=== PATIENT | male | born 1965 | race Caucasian/White ===

== ENCOUNTER 2017-07-30 11:04 | Inpatient (IN) | payer OTHER ==
[2017-07-30] MEDS ORDERED: SOD CHLORIDE 0.9% 500 ML IV (19:44)
[2017-07-30] MEDS ORDERED: hydrALAzine 20 MG INJ IV (20:00)
[2017-07-30 20:16] LABS: ADD MAN DIFF? NO
[2017-07-30 20:19] LABS: WHITE BLOOD COUNT 5.8 10^3/ul (4.8-10.8)
[2017-07-30 20:19] LABS: BASOPHIL # 0.1 10^3/ul (0.0-0.1); EOSINOPHILS # 0.2 10^3/ul (0.0-0.5); EOSINOPHILS % 3.6 % (0.0-7.0); HEMATOCRIT 28.6 % (42.0-52.0); HEMOGLOBIN 9.4 g/dl (14.0-18.0); LYMPHOCYTES # 0.9 10^3/ul (0.8-2.9); LYMPHOCYTES % 15.9 % (15.0-51.0); MEAN CORPUSCULAR HGB CONC 32.9 g/dl (32.0-37.0); MEAN CORPUSCULAR VOLUME 91.4 fl (82.0-101.0); MEAN PLATELET VOLUME 11.3 fl (7.4-10.4); MONOCYTE # 0.5 10^3/ul (0.3-0.9); MONOCYTES % 7.7 % (0.0-11.0); NEUTROPHIL # 4.2 10^3/ul (1.6-7.5); NEUTROPHILS % 71.5 % (39.0-77.0); PLATELET COUNT 255 10^3/UL (140-415); RED BLOOD COUNT 3.13 10^6/ul (4.70-6.10); RED CELL DISTRIBUTION WIDTH 15.8 % (11.5-14.5)
[2017-07-30] MEDS: FUROSEMIDE 40 MG INJ IV (20:19)
[2017-07-30 20:42] LABS: INR 1.01; PROTIME 13.4 Sec (11.9-14.9)
[2017-07-30 20:52] LABS: AMMONIA 19 umol/l (9-30)
[2017-07-30 20:53] LABS: ALANINE AMINOTRANSFERASE 31 IU/L (13-69); ALBUMIN 2.4 g/dl (3.3-4.9); ALBUMIN/GLOBULIN RATIO 0.72; ALKALINE PHOSPHATASE 127 IU/L (42-121); ANION GAP 14 (8-16); ASPARTATE AMINO TRANSFERASE 53 IU/L (15-46); BLOOD UREA NITROGEN 47 mg/dl (7-20); CALCIUM 7.2 mg/dl (8.4-10.2); CARBON DIOXIDE 24 mmol/L (21-31); CHLORIDE 105 mmol/L (97-110); CREATININE 4.59 mg/dl (0.61-1.24); GLUCOSE 233 mg/dl (70-220); LIPASE 75 U/L (23-300); POTASSIUM 3.9 mmol/L (3.5-5.1); SODIUM 139 mmol/L (135-144); TOTAL PROTEIN 5.7 g/dl (6.1-8.1)
[2017-07-30 21:04] LABS: TROPONIN-I 0.019 ng/ml (0.00-0.12)
[2017-07-30 21:32] LABS: B-TYPE NATRIURETIC PEPTIDE 94300 PG/ML (0-125)
[2017-07-30] MEDS ORDERED: NA PHOSPHATE/BIPHOS 133 ML ENEMA PR (22:00)
[2017-07-30] MEDS ORDERED: ONDANSETRON 4 MG INJ IV (22:00)
[2017-07-30] MEDS ORDERED: NACL 0.9% 3 ML SYG IV (22:00)
[2017-07-30] MEDS ORDERED: DOCUSATE SODIUM 100 MG CAP PO (22:00)
[2017-07-30] MEDS ORDERED: NITROGLYCERIN (SL) 0.4 MG TAB SL (22:00)
[2017-07-30] MEDS ORDERED: LORAZEPAM 2 MG INJ IV (22:00)
[2017-07-30 22:19] LABS: FREE T4 (FREE THYROXINE) 1.47 ng/dl (0.64-1.79)
[2017-07-31 00:17] LABS: ADD UMIC YES; UR ASCORBIC ACID NEGATIVE (NEGATIVE); UR BILIRUBIN (Dip) NEGATIVE (NEGATIVE); UR BLOOD (Dip) 1+ mg/dL (NEGATIVE); UR CLARITY CLEAR (CLEAR); UR COLOR YELLOW (YELLOW); UR GLUCOSE (Dip) 3+ mg/dL (NEGATIVE); UR KETONES (Dip) NEGATIVE (NEGATIVE); UR LEUKOCYTE ESTERASE (Dip) NEGATIVE Leu/ul (NEGATIVE); UR NITRITE (Dip) NEGATIVE (NEGATIVE); UR RBC 4 /HPF (0-5); UR TOTAL PROTEIN (Dip) 3+ mg/dl (NEGATIVE); UR UROBILINOGEN (Dip) NEGATIVE (NEGATIVE); UR WBC 1 /HPF (0-5)
[2017-07-31] MEDS: hydrALAzine 20 MG INJ IV (04:06)
[2017-07-31] MEDS: PANTOPRAZOLE (EC) 40 MG TAB PO (05:34)
[2017-07-31] MEDS: FUROSEMIDE 40 MG INJ IV ×2 (05:34→18:35)
[2017-07-31 06:42] LABS: ADD MAN DIFF? NO
[2017-07-31 06:49] LABS: WHITE BLOOD COUNT 5.1 10^3/ul (4.8-10.8)
[2017-07-31 06:49] LABS: BASOPHILS % 0.8 % (0.0-2.0); EOSINOPHILS # 0.2 10^3/ul (0.0-0.5); EOSINOPHILS % 3.9 % (0.0-7.0); HEMATOCRIT 24.7 % (42.0-52.0); LYMPHOCYTES # 0.8 10^3/ul (0.8-2.9); LYMPHOCYTES % 15.6 % (15.0-51.0); MEAN CORPUSCULAR HEMOGLOBIN 29.6 pg (29.0-33.0); MEAN CORPUSCULAR HGB CONC 32.4 g/dl (32.0-37.0); MEAN CORPUSCULAR VOLUME 91.5 fl (82.0-101.0); MEAN PLATELET VOLUME 11.8 fl (7.4-10.4); MONOCYTE # 0.4 10^3/ul (0.3-0.9); MONOCYTES % 8.6 % (0.0-11.0); NEUTROPHIL # 3.6 10^3/ul (1.6-7.5); NEUTROPHILS % 70.7 % (39.0-77.0); PLATELET COUNT 222 10^3/UL (140-415); RED CELL DISTRIBUTION WIDTH 15.9 % (11.5-14.5)
[2017-07-31 07:20] LABS: CHOL/HDL RATIO 4.1 RATIO; HDL CHOLESTEROL 35 mg/dl (28-71); LDL CHOLESTEROL,CALCULATED 88 mg/dl; TRIGLYCERIDES 111 mg/dl (0-149)
[2017-07-31 07:20] LABS: CHOLESTEROL 145 mg/dl (100-200)
[2017-07-31 07:21] LABS: ANION GAP 10 (8-16); BLOOD UREA NITROGEN 49 mg/dl (7-20); CALCIUM 7.4 mg/dl (8.4-10.2); CARBON DIOXIDE 26 mmol/L (21-31); CHLORIDE 107 mmol/L (97-110); CREATININE 4.92 mg/dl (0.61-1.24); GLUCOSE 194 mg/dl (70-220); MAGNESIUM 1.9 mg/dl (1.7-2.5); PHOSPHORUS 6.7 mg/dl (2.5-4.9); POTASSIUM 3.6 mmol/L (3.5-5.1); SODIUM 139 mmol/L (135-144)
[2017-07-31] MEDS: MULTIVIT/CA CARB/B CMPLX/FA TAB PO (08:28)
[2017-07-31] MEDS: HEPARIN 5,000 UNIT/0.5 ML VIAL SC ×2 (08:30→20:21)
[2017-07-31] MEDS: SEVELAMER 400 MG TAB PO (09:26)
[2017-07-31 10:01] LABS: ADD UMIC YES; UR ASCORBIC ACID NEGATIVE (NEGATIVE); UR BILIRUBIN (Dip) NEGATIVE (NEGATIVE); UR BLOOD (Dip) 1+ mg/dL (NEGATIVE); UR CLARITY CLEAR (CLEAR); UR COLOR YELLOW (YELLOW); UR GLUCOSE (Dip) 3+ mg/dL (NEGATIVE); UR KETONES (Dip) NEGATIVE (NEGATIVE); UR LEUKOCYTE ESTERASE (Dip) NEGATIVE Leu/ul (NEGATIVE); UR NITRITE (Dip) NEGATIVE (NEGATIVE); UR RBC 2 /HPF (0-5); UR SPECIFIC GRAVITY (Dip) 1.007 (1.003-1.030); UR TOTAL PROTEIN (Dip) 3+ mg/dl (NEGATIVE); UR UROBILINOGEN (Dip) NEGATIVE (NEGATIVE); UR WBC 1 /HPF (0-5)
[2017-07-31 10:19] LABS: SODIUM,URINE RANDOM 111 mmol/L (30-90)
[2017-07-31 10:19] LABS: CREATININE,URINE RANDOM 27.88 mg/dl (20-370)
[2017-07-31 10:22] LABS: HAAIG REFLEX REFLEX FILED
[2017-07-31 10:43] LABS: IRON 16 ug/dl (35-150)
[2017-07-31 10:51] LABS: COMPLEMENT C3 90 mg/dl (88-165); COMPLEMENT C4 21 mg/dl (14-44)
[2017-07-31 10:54] LABS: % IRON SATURATION 5 % SAT (22-52); TOTAL IRON BINDING CAPACITY 318 ug/dl (241-421)
[2017-07-31] MEDS: AMLODIPINE 10 MG TAB PO (10:55)
[2017-07-31] MEDS: LABETALOL HCL 20MG INJ IV (11:10)
[2017-07-31 11:15] LABS: HEPATITIS B SURFACE ANTIGEN NEGATIVE (NEGATIVE)
[2017-07-31 11:19] LABS: FERRITIN 37.3 ng/ml (11.1-264.0)
[2017-07-31 11:34] LABS: HEPATITIS B CORE ANTIBODY NEGATIVE (NEGATIVE); HEPATITIS C VIRAL ANTIBODY NEGATIVE (NEGATIVE)
[2017-07-31] MEDS ORDERED: SOD CHLORIDE 0.9% 100 ML (14:26)
[2017-07-31] MEDS ORDERED: LIDOCAINE 1% (MDV) 20 ML INJ (14:26)
[2017-07-31] MEDS ORDERED: HEPARIN 1000 UNITS/ML 10 ML INJ (14:27)
[2017-07-31 15:30] LABS: RHEUMATOID FACTOR NEGATIVE (NEGATIVE)
[2017-07-31] MEDS: EPOETIN 4000 UNITS/1 ML INJ (ESRD) SC (17:00)
[2017-07-31] MEDS ORDERED: GLUCOSE GEL 15 GRAM TUBE BUCCAL (17:00)
[2017-07-31] MEDS ORDERED: GLUCOSE GEL 15 GRAM TUBE PO ×2 (17:00)
[2017-07-31] MEDS ORDERED: GLUCAGON 1 MG INJ IM (17:00)
[2017-07-31] MEDS: INSULIN ASPART [NOVOLOG] 3 ML PEN SC ×3 (18:34→20:21)
[2017-07-31] MEDS: INSULIN GLARGINE [LANtus] 3 ML PEN SC (20:20)
[2017-07-31] MEDS ORDERED: ATENOLOL 50 MG TAB PO (21:00)
[2017-08-01] MEDS: ACCU-CHEK XX (02:16)
[2017-08-01] MEDS: PANTOPRAZOLE (EC) 40 MG TAB PO (05:26)
[2017-08-01] MEDS: FUROSEMIDE 40 MG INJ IV ×2 (05:27→18:33)
[2017-08-01] MEDS: INSULIN ASPART [NOVOLOG] 3 ML PEN SC ×7 (08:00→20:55)
[2017-08-01] MEDS: MULTIVIT/CA CARB/B CMPLX/FA TAB PO (09:16)
[2017-08-01] MEDS: AMLODIPINE 10 MG TAB PO (09:16)
[2017-08-01] MEDS: HEPARIN 5,000 UNIT/0.5 ML VIAL SC ×2 (09:23→20:50)
[2017-08-01 09:59] LABS: ADD MAN DIFF? NO
[2017-08-01 10:15] LABS: WHITE BLOOD COUNT 8.1 10^3/ul (4.8-10.8)
[2017-08-01 10:15] LABS: ABNORMAL IP MESSAGE 1; BASOPHILS % 0.4 % (0.0-2.0); EOSINOPHILS # 0.1 10^3/ul (0.0-0.5); EOSINOPHILS % 0.6 % (0.0-7.0); HEMATOCRIT 27.1 % (42.0-52.0); HEMOGLOBIN 8.7 g/dl (14.0-18.0); LYMPHOCYTES # 0.5 10^3/ul (0.8-2.9); LYMPHOCYTES % 6.2 % (15.0-51.0); MEAN CORPUSCULAR HEMOGLOBIN 29.8 pg (29.0-33.0); MEAN CORPUSCULAR HGB CONC 32.1 g/dl (32.0-37.0); MEAN CORPUSCULAR VOLUME 92.8 fl (82.0-101.0); MEAN PLATELET VOLUME 11.9 fl (7.4-10.4); MONOCYTE # 0.4 10^3/ul (0.3-0.9); MONOCYTES % 4.6 % (0.0-11.0); NEUTROPHIL # 7.1 10^3/ul (1.6-7.5); NEUTROPHILS % 87.8 % (39.0-77.0); PLATELET COUNT 260 10^3/UL (140-415); POSITIVE DIFF @See below; RED BLOOD COUNT 2.92 10^6/ul (4.70-6.10); RED CELL DISTRIBUTION WIDTH 15.7 % (11.5-14.5)
[2017-08-01] MEDS: INFLUENZA VIRUS VACCINE 0.5 ML (DISPENSING) IM* (10:17)
[2017-08-01 10:45] LABS: ANION GAP 15 (8-16); BLOOD UREA NITROGEN 55 mg/dl (7-20); CALCIUM 7.3 mg/dl (8.4-10.2); CARBON DIOXIDE 22 mmol/L (21-31); CHLORIDE 107 mmol/L (97-110); CREATININE 4.92 mg/dl (0.61-1.24); GLUCOSE 139 mg/dl (70-220); POTASSIUM 3.9 mmol/L (3.5-5.1); SODIUM 140 mmol/L (135-144)
[2017-08-01] MEDS: SOD FERRIC GLUC COMPLX 125 MG in SOD CHLORIDE 0.9% 100 ML IVPB (12:21)
[2017-08-01 13:42] LABS: ANA SCREEN NEGATIVE (NEGATIVE)
[2017-08-01 14:26] LABS: ANCA SCREEN NEGATIVE (NEGATIVE)
[2017-08-01 16:36] LABS: CREATININE, RANDOM URINE 36 mg/dL (20-370); MICROALBUMIN 167.3 mg/dL; MICROALBUMIN/CREATININE RATIO 4647 (<30); MYELOPEROXIDASE ANTIBODY <1.0 AI; PROTEINASE-3 ANTIBODY <1.0 AI
[2017-08-01] MEDS: ATORVASTATIN 40 MG TAB PO (20:49)
[2017-08-01] MEDS: INSULIN GLARGINE [LANtus] 3 ML PEN SC (20:53)
[2017-08-02] MEDS: ACCU-CHEK XX (01:47)
[2017-08-02] MEDS: PANTOPRAZOLE (EC) 40 MG TAB PO (05:13)
[2017-08-02] MEDS: FUROSEMIDE 40 MG INJ IV ×2 (05:15→17:18)
[2017-08-02 07:57] LABS: ADD MAN DIFF? NO
[2017-08-02] MEDS: INSULIN ASPART [NOVOLOG] 3 ML PEN SC ×7 (08:00→20:19)
[2017-08-02 08:08] LABS: ABNORMAL IP MESSAGE 1; BASOPHILS % 0.4 % (0.0-2.0); EOSINOPHILS % 0.8 % (0.0-7.0); HEMATOCRIT 29.4 % (42.0-52.0); HEMOGLOBIN 9.5 g/dl (14.0-18.0); LYMPHOCYTES # 0.4 10^3/ul (0.8-2.9); LYMPHOCYTES % 7.5 % (15.0-51.0); MEAN CORPUSCULAR HEMOGLOBIN 29.9 pg (29.0-33.0); MEAN CORPUSCULAR HGB CONC 32.3 g/dl (32.0-37.0); MEAN CORPUSCULAR VOLUME 92.5 fl (82.0-101.0); MEAN PLATELET VOLUME 11.9 fl (7.4-10.4); MONOCYTE # 0.2 10^3/ul (0.3-0.9); MONOCYTES % 3.6 % (0.0-11.0); NEUTROPHIL # 4.6 10^3/ul (1.6-7.5); NEUTROPHILS % 87.3 % (39.0-77.0); PLATELET COUNT 244 10^3/UL (140-415); POSITIVE DIFF @See below; RED BLOOD COUNT 3.18 10^6/ul (4.70-6.10); RED CELL DISTRIBUTION WIDTH 15.9 % (11.5-14.5)
[2017-08-02 08:08] LABS: WHITE BLOOD COUNT 5.3 10^3/ul (4.8-10.8)
[2017-08-02 08:28] LABS: ANION GAP 14 (8-16); BLOOD UREA NITROGEN 58 mg/dl (7-20); CALCIUM 7.5 mg/dl (8.4-10.2); CARBON DIOXIDE 24 mmol/L (21-31); CHLORIDE 108 mmol/L (97-110); CREATININE 5.17 mg/dl (0.61-1.24); GLUCOSE 110 mg/dl (70-220); POTASSIUM 3.9 mmol/L (3.5-5.1); SODIUM 142 mmol/L (135-144)
[2017-08-02] MEDS: HEPARIN 5,000 UNIT/0.5 ML VIAL SC ×2 (09:06→20:23)
[2017-08-02] MEDS: MULTIVIT/CA CARB/B CMPLX/FA TAB PO (09:07)
[2017-08-02] MEDS: AMLODIPINE 10 MG TAB PO (09:07)
[2017-08-02] MEDS: ASPIRIN 81 MG TAB PO (09:07)
[2017-08-02] MEDS: SOD FERRIC GLUC COMPLX 125 MG in SOD CHLORIDE 0.9% 100 ML IVPB (12:01)
[2017-08-02 14:56] LABS: ANTI-DNA (DOUBLE STRANDED) <95 U/mL (< 301)
[2017-08-02] MEDS: EPOETIN 4000 UNITS/1 ML INJ (ESRD) SC (17:19)
[2017-08-02] MEDS: ATORVASTATIN 40 MG TAB PO (20:19)
[2017-08-02] MEDS: INSULIN GLARGINE [LANtus] 3 ML PEN SC (20:22)
[2017-08-03] MEDS: ACCU-CHEK XX (02:00)
[2017-08-03] MEDS: DEXTROSE 50% 50 ML SYRINGE IV (04:04)
[2017-08-03] MEDS: ACETAMINOPHEN 325 MG TAB PO ×2 (04:17→19:06)
[2017-08-03] MEDS: PANTOPRAZOLE (EC) 40 MG TAB PO (05:15)
[2017-08-03] MEDS: FUROSEMIDE 40 MG INJ IV (05:15)
[2017-08-03 07:47] LABS: ADD MAN DIFF? NO
[2017-08-03] MEDS: INSULIN ASPART [NOVOLOG] 3 ML PEN SC ×7 (07:53→20:24)
[2017-08-03 08:12] LABS: WHITE BLOOD COUNT 6.9 10^3/ul (4.8-10.8)
[2017-08-03 08:12] LABS: ABNORMAL IP MESSAGE 1; BASOPHILS % 0.4 % (0.0-2.0); EOSINOPHILS # 0.1 10^3/ul (0.0-0.5); EOSINOPHILS % 1.3 % (0.0-7.0); HEMATOCRIT 28.2 % (42.0-52.0); HEMOGLOBIN 9.1 g/dl (14.0-18.0); LYMPHOCYTES # 0.5 10^3/ul (0.8-2.9); LYMPHOCYTES % 6.5 % (15.0-51.0); MEAN CORPUSCULAR HEMOGLOBIN 29.6 pg (29.0-33.0); MEAN CORPUSCULAR HGB CONC 32.3 g/dl (32.0-37.0); MEAN CORPUSCULAR VOLUME 91.9 fl (82.0-101.0); MEAN PLATELET VOLUME 11.2 fl (7.4-10.4); MONOCYTE # 0.2 10^3/ul (0.3-0.9); MONOCYTES % 3.3 % (0.0-11.0); NEUTROPHILS % 87.8 % (39.0-77.0); PLATELET COUNT 235 10^3/UL (140-415); POSITIVE DIFF @See below; RED BLOOD COUNT 3.07 10^6/ul (4.70-6.10); RED CELL DISTRIBUTION WIDTH 15.7 % (11.5-14.5)
[2017-08-03 08:18] LABS: ANION GAP 14 (8-16); BLOOD UREA NITROGEN 63 mg/dl (7-20); CALCIUM 7.3 mg/dl (8.4-10.2); CARBON DIOXIDE 21 mmol/L (21-31); CHLORIDE 105 mmol/L (97-110); CREATININE 5.29 mg/dl (0.61-1.24); GLUCOSE 104 mg/dl (70-220); SODIUM 136 mmol/L (135-144)
[2017-08-03] MEDS: MULTIVIT/CA CARB/B CMPLX/FA TAB PO (08:30)
[2017-08-03] MEDS: ASPIRIN 81 MG TAB PO (08:30)
[2017-08-03] MEDS: AMLODIPINE 10 MG TAB PO (08:30)
[2017-08-03] MEDS: HEPARIN 5,000 UNIT/0.5 ML VIAL SC ×2 (08:32→20:27)
[2017-08-03] MEDS: SOD FERRIC GLUC COMPLX 125 MG in SOD CHLORIDE 0.9% 100 ML IVPB (12:50)
[2017-08-03] MEDS: MAGNESIUM HYDROXIDE 30ML CUP PO (15:55)
[2017-08-03] MEDS: FUROSEMIDE 40 MG TAB PO (17:08)
[2017-08-03] MEDS: ATORVASTATIN 40 MG TAB PO (20:25)
[2017-08-03] MEDS: INSULIN GLARGINE [LANtus] 3 ML PEN SC (20:27)
[2017-08-03] MEDS: HYDROCODONE/APAP (5/325) TAB PO (21:16)
[2017-08-04] MEDS: ACCU-CHEK XX (01:28)
[2017-08-04] MEDS: PANTOPRAZOLE (EC) 40 MG TAB PO (05:37)
[2017-08-04] MEDS: FUROSEMIDE 40 MG TAB PO (05:38)
[2017-08-04 06:09] LABS: ADD MAN DIFF? NO
[2017-08-04 06:13] LABS: WHITE BLOOD COUNT 7.8 10^3/ul (4.8-10.8)
[2017-08-04 06:13] LABS: BASOPHILS % 0.4 % (0.0-2.0); EOSINOPHILS # 0.2 10^3/ul (0.0-0.5); EOSINOPHILS % 2.3 % (0.0-7.0); HEMATOCRIT 25.9 % (42.0-52.0); HEMOGLOBIN 8.5 g/dl (14.0-18.0); LYMPHOCYTES # 0.9 10^3/ul (0.8-2.9); LYMPHOCYTES % 11.9 % (15.0-51.0); MEAN CORPUSCULAR HEMOGLOBIN 29.8 pg (29.0-33.0); MEAN CORPUSCULAR HGB CONC 32.8 g/dl (32.0-37.0); MEAN CORPUSCULAR VOLUME 90.9 fl (82.0-101.0); MEAN PLATELET VOLUME 11.4 fl (7.4-10.4); MONOCYTE # 0.7 10^3/ul (0.3-0.9); MONOCYTES % 9.3 % (0.0-11.0); NEUTROPHIL # 5.9 10^3/ul (1.6-7.5); NEUTROPHILS % 75.7 % (39.0-77.0); NUCLEATED RED BLOOD CELLS% 0.3 /100WBC (0.0-0.0); PLATELET COUNT 241 10^3/UL (140-415); RED BLOOD COUNT 2.85 10^6/ul (4.70-6.10); RED CELL DISTRIBUTION WIDTH 15.8 % (11.5-14.5)
[2017-08-04 06:49] LABS: ANION GAP 12 (8-16); BLOOD UREA NITROGEN 68 mg/dl (7-20); CALCIUM 7.6 mg/dl (8.4-10.2); CARBON DIOXIDE 23 mmol/L (21-31); CHLORIDE 103 mmol/L (97-110); CREATININE 5.48 mg/dl (0.61-1.24); GLUCOSE 55 mg/dl (70-220); POTASSIUM 4.1 mmol/L (3.5-5.1); SODIUM 134 mmol/L (135-144)
[2017-08-04] MEDS: INSULIN ASPART [NOVOLOG] 3 ML PEN SC ×7 (08:00→20:45)
[2017-08-04] MEDS: MULTIVIT/CA CARB/B CMPLX/FA TAB PO (09:05)
[2017-08-04] MEDS: ASPIRIN 81 MG TAB PO (09:06)
[2017-08-04] MEDS: AMLODIPINE 10 MG TAB PO (09:06)
[2017-08-04] MEDS: HEPARIN 5,000 UNIT/0.5 ML VIAL SC ×2 (09:09→20:47)
[2017-08-04] MEDS: SOD FERRIC GLUC COMPLX 125 MG in SOD CHLORIDE 0.9% 100 ML IVPB (11:37)
[2017-08-04] MEDS: ACETAMINOPHEN 325 MG TAB PO (11:37)
[2017-08-04] MEDS: BUMETANIDE 1 MG TAB PO (17:27)
[2017-08-04] MEDS: ALBUTEROL/IPRATROPIUM (NEB) 3 ML AMP HHN (20:15)
[2017-08-04] MEDS: ATORVASTATIN 40 MG TAB PO (20:48)
[2017-08-04] MEDS: INSULIN GLARGINE [LANtus] 3 ML PEN SC (20:48)
[2017-08-05] MEDS: ACCU-CHEK XX (01:20)
[2017-08-05] MEDS: PANTOPRAZOLE (EC) 40 MG TAB PO (05:32)
[2017-08-05] MEDS: BUMETANIDE 1 MG TAB PO ×2 (05:32→17:29)
[2017-08-05 07:43] LABS: ADD MAN DIFF? NO
[2017-08-05 07:47] LABS: BASOPHILS % 0.3 % (0.0-2.0); EOSINOPHILS # 0.1 10^3/ul (0.0-0.5); EOSINOPHILS % 1.9 % (0.0-7.0); HEMATOCRIT 23.7 % (42.0-52.0); HEMOGLOBIN 7.9 g/dl (14.0-18.0); LYMPHOCYTES # 0.6 10^3/ul (0.8-2.9); LYMPHOCYTES % 8.4 % (15.0-51.0); MEAN CORPUSCULAR HEMOGLOBIN 30.3 pg (29.0-33.0); MEAN CORPUSCULAR HGB CONC 33.3 g/dl (32.0-37.0); MEAN CORPUSCULAR VOLUME 90.8 fl (82.0-101.0); MEAN PLATELET VOLUME 11.9 fl (7.4-10.4); MONOCYTE # 0.7 10^3/ul (0.3-0.9); MONOCYTES % 9.6 % (0.0-11.0); NEUTROPHIL # 5.9 10^3/ul (1.6-7.5); NEUTROPHILS % 79.4 % (39.0-77.0); NUCLEATED RED BLOOD CELLS% 0.3 /100WBC (0.0-0.0); PLATELET COUNT 216 10^3/UL (140-415); RED BLOOD COUNT 2.61 10^6/ul (4.70-6.10)
[2017-08-05 07:47] LABS: WHITE BLOOD COUNT 7.4 10^3/ul (4.8-10.8)
[2017-08-05] MEDS: INSULIN ASPART [NOVOLOG] 3 ML PEN SC ×7 (08:00→21:00)
[2017-08-05 08:26] LABS: PHOSPHORUS 6.3 mg/dl (2.5-4.9)
[2017-08-05 08:26] LABS: ANION GAP 14 (8-16); BLOOD UREA NITROGEN 75 mg/dl (7-20); CALCIUM 7.9 mg/dl (8.4-10.2); CARBON DIOXIDE 22 mmol/L (21-31); CHLORIDE 97 mmol/L (97-110); CREATININE 6.16 mg/dl (0.61-1.24); GLUCOSE 67 mg/dl (70-220); MAGNESIUM 2.1 mg/dl (1.7-2.5); POTASSIUM 4.5 mmol/L (3.5-5.1); SODIUM 128 mmol/L (135-144)
[2017-08-05] MEDS: AMLODIPINE 10 MG TAB PO (08:53)
[2017-08-05] MEDS: ASPIRIN 81 MG TAB PO (08:53)
[2017-08-05] MEDS: MULTIVIT/CA CARB/B CMPLX/FA TAB PO (08:53)
[2017-08-05] MEDS: HEPARIN 5,000 UNIT/0.5 ML VIAL SC ×2 (08:57→21:06)
[2017-08-05] MEDS: HYDROCODONE/APAP (5/325) TAB PO (09:09)
[2017-08-05] MEDS: SOD FERRIC GLUC COMPLX 125 MG in SOD CHLORIDE 0.9% 100 ML IVPB (12:16)
[2017-08-05] MEDS: ALBUTEROL/IPRATROPIUM (NEB) 3 ML AMP HHN (16:02)
[2017-08-05] MEDS: LORATADINE 10 MG TAB PO (17:18)
[2017-08-05] MEDS: SALINE 0.65% 45 ML NAS SPRAY NASAL ×2 (17:18→21:00)
[2017-08-05] MEDS: EPOETIN 4000 UNITS/1 ML INJ (ESRD) SC (17:32)
[2017-08-05] MEDS: INSULIN GLARGINE [LANtus] 3 ML PEN SC (20:00)
[2017-08-05] MEDS: ATORVASTATIN 40 MG TAB PO (21:01)
[2017-08-06] MEDS: morphine 2 MG INJ IV (00:04)
[2017-08-06] MEDS ORDERED: NALOXONE (0.4 MG/ML) INJ (00:19)
[2017-08-06 00:33] LABS: ADD MAN DIFF? NO
[2017-08-06 00:36] LABS: BASOPHILS % 0.3 % (0.0-2.0); EOSINOPHILS # 0.3 10^3/ul (0.0-0.5); EOSINOPHILS % 3.9 % (0.0-7.0); HEMATOCRIT 23.6 % (42.0-52.0); HEMOGLOBIN 7.6 g/dl (14.0-18.0); LYMPHOCYTES # 0.9 10^3/ul (0.8-2.9); LYMPHOCYTES % 13.4 % (15.0-51.0); MEAN CORPUSCULAR HEMOGLOBIN 29.6 pg (29.0-33.0); MEAN CORPUSCULAR HGB CONC 32.2 g/dl (32.0-37.0); MEAN CORPUSCULAR VOLUME 91.8 fl (82.0-101.0); MEAN PLATELET VOLUME 11.4 fl (7.4-10.4); MONOCYTE # 0.9 10^3/ul (0.3-0.9); MONOCYTES % 13.6 % (0.0-11.0); NEUTROPHIL # 4.4 10^3/ul (1.6-7.5); NUCLEATED RED BLOOD CELLS% 0.5 /100WBC (0.0-0.0); PLATELET COUNT 203 10^3/UL (140-415); RED BLOOD COUNT 2.57 10^6/ul (4.70-6.10); RED CELL DISTRIBUTION WIDTH 15.8 % (11.5-14.5)
[2017-08-06 00:36] LABS: WHITE BLOOD COUNT 6.4 10^3/ul (4.8-10.8)
[2017-08-06 01:02] LABS: MAGNESIUM 2.2 mg/dl (1.7-2.5)
[2017-08-06 01:03] LABS: ALANINE AMINOTRANSFERASE 31 IU/L (13-69); ALBUMIN 2.5 g/dl (3.3-4.9); ALBUMIN/GLOBULIN RATIO 0.75; ALKALINE PHOSPHATASE 88 IU/L (42-121); ANION GAP 15 (8-16); ASPARTATE AMINO TRANSFERASE 47 IU/L (15-46); BLOOD UREA NITROGEN 85 mg/dl (7-20); CALCIUM 7.8 mg/dl (8.4-10.2); CARBON DIOXIDE 20 mmol/L (21-31); CHLORIDE 97 mmol/L (97-110); CREATININE 6.84 mg/dl (0.61-1.24); GLUCOSE 142 mg/dl (70-220); POTASSIUM 4.6 mmol/L (3.5-5.1); SODIUM 127 mmol/L (135-144); TOTAL PROTEIN 5.8 g/dl (6.1-8.1)
[2017-08-06 01:07] LABS: INR 0.93; PROTIME 12.5 Sec (11.9-14.9)
[2017-08-06 01:08] LABS: PARTIAL THROMBOPLASTIN TIME 37.5 Sec (25.0-35.0)
[2017-08-06 01:13] LABS: TROPONIN-I 0.015 ng/ml (0.00-0.12)
[2017-08-06 01:38] LABS: AADO2 Arterial 34.2 mmHg (7.0-24.0); Allen Test ACCEPTAB; Arterial Blood Gas Oxygen Sat 91.5 mmHG (95.0-98.0); Arterial COHb 0 % (0.0-3.0); Arterial Fraction of Oxyhgb 91.2 % (93.0-99.0); Arterial HCO3 20.5 mmol/L (22.0-26.0); Arterial MetHb 0.3 % (0.0-1.5); Arterial Total Hemglobin 9.4 g/dl (12.0-18.0); MODE ROOM AIR; Site Left Radial
[2017-08-06] MEDS: DEXTROSE 50% 50 ML SYRINGE IV (02:32)
[2017-08-06] MEDS: ACCU-CHEK XX (02:35)
[2017-08-06] MEDS: DEXTROSE 5%-0.45% NACL 1,000 ML IV (05:07)
[2017-08-06] MEDS: PANTOPRAZOLE (EC) 40 MG TAB PO (05:48)
[2017-08-06] MEDS: BUMETANIDE 1 MG TAB PO ×2 (05:48→17:32)
[2017-08-06] MEDS: INSULIN ASPART [NOVOLOG] 3 ML PEN SC ×7 (08:00→20:36)
[2017-08-06] MEDS: DEXTROSE 5%-0.9% NACL 1,000 ML IV (08:27)
[2017-08-06] MEDS: MULTIVIT/CA CARB/B CMPLX/FA TAB PO (08:28)
[2017-08-06] MEDS: ASPIRIN 81 MG TAB PO (08:28)
[2017-08-06] MEDS: LORATADINE 10 MG TAB PO (08:28)
[2017-08-06] MEDS: SALINE 0.65% 45 ML NAS SPRAY NASAL ×2 (08:28→20:28)
[2017-08-06] MEDS: AMLODIPINE 10 MG TAB PO (08:28)
[2017-08-06] MEDS: HEPARIN 5,000 UNIT/0.5 ML VIAL SC ×2 (08:44→20:31)
[2017-08-06 09:33] LABS: ADD MAN DIFF? NO
[2017-08-06 09:37] LABS: WHITE BLOOD COUNT 8.1 10^3/ul (4.8-10.8)
[2017-08-06 09:37] LABS: ABNORMAL IP MESSAGE 1; BASOPHILS % 0.1 % (0.0-2.0); EOSINOPHILS % 0.2 % (0.0-7.0); HEMOGLOBIN 8.2 g/dl (14.0-18.0); LYMPHOCYTES # 0.5 10^3/ul (0.8-2.9); LYMPHOCYTES % 5.8 % (15.0-51.0); MEAN CORPUSCULAR HEMOGLOBIN 29.7 pg (29.0-33.0); MEAN CORPUSCULAR HGB CONC 32.8 g/dl (32.0-37.0); MEAN CORPUSCULAR VOLUME 90.6 fl (82.0-101.0); MEAN PLATELET VOLUME 11.7 fl (7.4-10.4); MONOCYTE # 0.4 10^3/ul (0.3-0.9); MONOCYTES % 5.5 % (0.0-11.0); NEUTROPHILS % 87.3 % (39.0-77.0); NUCLEATED RED BLOOD CELLS% 0.2 /100WBC (0.0-0.0); PLATELET COUNT 213 10^3/UL (140-415); POSITIVE DIFF @See below; RED BLOOD COUNT 2.76 10^6/ul (4.70-6.10); RED CELL DISTRIBUTION WIDTH 15.8 % (11.5-14.5)
[2017-08-06 10:17] LABS: ANION GAP 15 (8-16); BLOOD UREA NITROGEN 88 mg/dl (7-20); CALCIUM 8.2 mg/dl (8.4-10.2); CARBON DIOXIDE 19 mmol/L (21-31); CHLORIDE 97 mmol/L (97-110); CREATININE 6.97 mg/dl (0.61-1.24); GLUCOSE 91 mg/dl (70-220); POTASSIUM 5.3 mmol/L (3.5-5.1); SODIUM 126 mmol/L (135-144)
[2017-08-06] MEDS ORDERED: HYDROmorphONE 0.5 MG/0.5 ML SYG IV (11:30)
[2017-08-06] MEDS: FLUTICASONE 0.05% 16 GM NAS SPRAY NASAL (12:30)
[2017-08-06] MEDS: ATORVASTATIN 40 MG TAB PO (20:28)
[2017-08-06] MEDS: INSULIN GLARGINE [LANtus] 3 ML PEN SC (20:30)
[2017-08-07] MEDS: DEXTROSE 50% 50 ML SYRINGE IV ×4 (01:22→19:11)
[2017-08-07] MEDS: ACCU-CHEK XX (01:36)
[2017-08-07] MEDS: DEXTROSE 5%-0.45% NACL 1,000 ML IV ×2 (01:48→14:30)
[2017-08-07] MEDS: PANTOPRAZOLE (EC) 40 MG TAB PO (06:13)
[2017-08-07] MEDS: BUMETANIDE 1 MG TAB PO ×2 (06:13→17:35)
[2017-08-07] MEDS: INSULIN ASPART [NOVOLOG] 3 ML PEN SC ×8 (08:00→20:31)
[2017-08-07 08:19] LABS: ADD MAN DIFF? NO; BASOPHILS % 0.3 % (0.0-2.0); EOSINOPHILS # 0.1 10^3/ul (0.0-0.5); EOSINOPHILS % 2.1 % (0.0-7.0); HEMATOCRIT 22.7 % (42.0-52.0); HEMOGLOBIN 7.6 g/dl (14.0-18.0); LYMPHOCYTES # 0.7 10^3/ul (0.8-2.9); LYMPHOCYTES % 10.7 % (15.0-51.0); MEAN CORPUSCULAR HEMOGLOBIN 30.3 pg (29.0-33.0); MEAN CORPUSCULAR HGB CONC 33.5 g/dl (32.0-37.0); MEAN CORPUSCULAR VOLUME 90.4 fl (82.0-101.0); MEAN PLATELET VOLUME 11.7 fl (7.4-10.4); MONOCYTE # 0.8 10^3/ul (0.3-0.9); MONOCYTES % 11.8 % (0.0-11.0); NEUTROPHIL # 5.1 10^3/ul (1.6-7.5); NEUTROPHILS % 74.7 % (39.0-77.0); NUCLEATED RED BLOOD CELLS% 0.6 /100WBC (0.0-0.0); PLATELET COUNT 210 10^3/UL (140-415); RED BLOOD COUNT 2.51 10^6/ul (4.70-6.10)
[2017-08-07 08:19] LABS: WHITE BLOOD COUNT 6.8 10^3/ul (4.8-10.8)
[2017-08-07 08:47] LABS: PHOSPHORUS 7.8 mg/dl (2.5-4.9)
[2017-08-07 08:47] LABS: MAGNESIUM 2.4 mg/dl (1.7-2.5)
[2017-08-07] MEDS: ASPIRIN 81 MG TAB PO (09:00)
[2017-08-07] MEDS: LORATADINE 10 MG TAB PO (09:00)
[2017-08-07] MEDS: FLUTICASONE 0.05% 16 GM NAS SPRAY NASAL (09:00)
[2017-08-07] MEDS: AMLODIPINE 10 MG TAB PO (09:00)
[2017-08-07] MEDS: SALINE 0.65% 45 ML NAS SPRAY NASAL ×2 (09:00→20:30)
[2017-08-07] MEDS: HEPARIN 5,000 UNIT/0.5 ML VIAL SC ×2 (09:00→20:38)
[2017-08-07] MEDS: MULTIVIT/CA CARB/B CMPLX/FA TAB PO (09:00)
[2017-08-07 09:30] LABS: ANION GAP 18 (8-16); BLOOD UREA NITROGEN 95 mg/dl (7-20); CALCIUM 7.8 mg/dl (8.4-10.2); CARBON DIOXIDE 18 mmol/L (21-31); CHLORIDE 96 mmol/L (97-110); CREATININE 7.47 mg/dl (0.61-1.24); GLUCOSE 83 mg/dl (70-220); POTASSIUM 5.7 mmol/L (3.5-5.1); SODIUM 126 mmol/L (135-144)
[2017-08-07] MEDS ORDERED: LIDOCAINE 1% (MDV) 20 ML INJ (16:35)
[2017-08-07] MEDS ORDERED: HEPARIN 1000 UNITS/ML 10 ML INJ (16:35)
[2017-08-07] MEDS ORDERED: HEPARIN 1000 UNITS/NS (A-LINE) 1,000 ML (16:35)
[2017-08-07] MEDS ORDERED: FENTAnyl 50 MCG/ML VIAL (17:19)
[2017-08-07] MEDS ORDERED: MIDAZOLAM 1 MG/ML 2 ML INJ (17:19)
[2017-08-07] MEDS: EPOETIN 4000 UNITS/1 ML INJ (ESRD) SC (19:06)
[2017-08-07] MEDS: ATORVASTATIN 40 MG TAB PO (20:31)
[2017-08-08] MEDS: ACCU-CHEK XX (02:00)
[2017-08-08] MEDS: DEXTROSE 5%-0.45% NACL 1,000 ML IV (03:00)
[2017-08-08] MEDS: BUMETANIDE 1 MG TAB PO ×2 (07:22→17:16)
[2017-08-08] MEDS: PANTOPRAZOLE (EC) 40 MG TAB PO (07:22)
[2017-08-08] MEDS: INSULIN ASPART [NOVOLOG] 3 ML PEN SC ×7 (08:00→20:33)
[2017-08-08] MEDS: HEPARIN 1000 UNITS/ML 10 ML INJ CATHETER (08:01)
[2017-08-08] MEDS: SALINE 0.65% 45 ML NAS SPRAY NASAL ×2 (08:37→20:33)
[2017-08-08] MEDS: FLUTICASONE 0.05% 16 GM NAS SPRAY NASAL (08:38)
[2017-08-08] MEDS: MULTIVIT/CA CARB/B CMPLX/FA TAB PO (08:38)
[2017-08-08] MEDS: LORATADINE 10 MG TAB PO (08:39)
[2017-08-08] MEDS: ASPIRIN 81 MG TAB PO (08:39)
[2017-08-08] MEDS: HEPARIN 5,000 UNIT/0.5 ML VIAL SC ×2 (08:40→20:36)
[2017-08-08] MEDS: AMLODIPINE 10 MG TAB PO (08:40)
[2017-08-08 08:48] LABS: ADD MAN DIFF? NO
[2017-08-08 08:52] LABS: BASOPHILS % 0.4 % (0.0-2.0); EOSINOPHILS # 0.2 10^3/ul (0.0-0.5); EOSINOPHILS % 3.4 % (0.0-7.0); HEMATOCRIT 24.4 % (42.0-52.0); HEMOGLOBIN 8.1 g/dl (14.0-18.0); LYMPHOCYTES # 0.8 10^3/ul (0.8-2.9); LYMPHOCYTES % 10.8 % (15.0-51.0); MEAN CORPUSCULAR HEMOGLOBIN 30.2 pg (29.0-33.0); MEAN CORPUSCULAR HGB CONC 33.2 g/dl (32.0-37.0); MEAN PLATELET VOLUME 11.5 fl (7.4-10.4); MONOCYTES % 13.8 % (0.0-11.0); NUCLEATED RED BLOOD CELLS% 0.3 /100WBC (0.0-0.0); PLATELET COUNT 241 10^3/UL (140-415); RED BLOOD COUNT 2.68 10^6/ul (4.70-6.10); RED CELL DISTRIBUTION WIDTH 16.3 % (11.5-14.5)
[2017-08-08 09:18] LABS: ANION GAP 17 (8-16); BLOOD UREA NITROGEN 68 mg/dl (7-20); CALCIUM 8.2 mg/dl (8.4-10.2); CARBON DIOXIDE 21 mmol/L (21-31); CHLORIDE 98 mmol/L (97-110); CREATININE 5.65 mg/dl (0.61-1.24); GLUCOSE 93 mg/dl (70-220); MAGNESIUM 2.2 mg/dl (1.7-2.5); PHOSPHORUS 5.5 mg/dl (2.5-4.9); POTASSIUM 4.1 mmol/L (3.5-5.1); SODIUM 132 mmol/L (135-144)
[2017-08-08] MEDS: SEVELAMER 400 MG TAB PO ×2 (12:03→17:16)
[2017-08-08] MEDS: ATORVASTATIN 40 MG TAB PO (20:33)
[2017-08-08] MEDS: HYDROCODONE/APAP (5/325) TAB PO (20:49)
[2017-08-09] MEDS: ACCU-CHEK XX (02:00)
[2017-08-09] MEDS: PANTOPRAZOLE (EC) 40 MG TAB PO (05:40)
[2017-08-09] MEDS: BUMETANIDE 1 MG TAB PO ×2 (05:40→17:11)
[2017-08-09] MEDS: SALINE 0.65% 45 ML NAS SPRAY NASAL (08:56)
[2017-08-09] MEDS: FLUTICASONE 0.05% 16 GM NAS SPRAY NASAL (08:57)
[2017-08-09] MEDS: MULTIVIT/CA CARB/B CMPLX/FA TAB PO (08:57)
[2017-08-09] MEDS: LORATADINE 10 MG TAB PO (08:57)
[2017-08-09] MEDS: ASPIRIN 81 MG TAB PO (08:57)
[2017-08-09] MEDS: SEVELAMER 400 MG TAB PO ×3 (08:57→17:11)
[2017-08-09] MEDS: INSULIN ASPART [NOVOLOG] 3 ML PEN SC ×7 (08:58→20:30)
[2017-08-09] MEDS: HEPARIN 5,000 UNIT/0.5 ML VIAL SC ×2 (08:59→20:30)
[2017-08-09] MEDS: AMLODIPINE 10 MG TAB PO (09:00)
[2017-08-09 09:04] LABS: ADD MAN DIFF? NO
[2017-08-09 09:10] LABS: BASOPHILS % 0.3 % (0.0-2.0); EOSINOPHILS # 0.3 10^3/ul (0.0-0.5); EOSINOPHILS % 3.9 % (0.0-7.0); HEMATOCRIT 22.9 % (42.0-52.0); HEMOGLOBIN 7.6 g/dl (14.0-18.0); LYMPHOCYTES # 0.8 10^3/ul (0.8-2.9); LYMPHOCYTES % 11.9 % (15.0-51.0); MEAN CORPUSCULAR HEMOGLOBIN 30.4 pg (29.0-33.0); MEAN CORPUSCULAR HGB CONC 33.2 g/dl (32.0-37.0); MEAN CORPUSCULAR VOLUME 91.6 fl (82.0-101.0); MEAN PLATELET VOLUME 11.4 fl (7.4-10.4); MONOCYTE # 1.1 10^3/ul (0.3-0.9); MONOCYTES % 15.4 % (0.0-11.0); NEUTROPHIL # 4.7 10^3/ul (1.6-7.5); NEUTROPHILS % 68.1 % (39.0-77.0); PLATELET COUNT 220 10^3/UL (140-415); RED CELL DISTRIBUTION WIDTH 16.2 % (11.5-14.5)
[2017-08-09 09:10] LABS: WHITE BLOOD COUNT 6.9 10^3/ul (4.8-10.8)
[2017-08-09 09:36] LABS: ANION GAP 14 (8-16); BLOOD UREA NITROGEN 82 mg/dl (7-20); CALCIUM 7.5 mg/dl (8.4-10.2); CARBON DIOXIDE 23 mmol/L (21-31); CHLORIDE 100 mmol/L (97-110); CREATININE 6.41 mg/dl (0.61-1.24); GLUCOSE 184 mg/dl (70-220); MAGNESIUM 2.3 mg/dl (1.7-2.5); PHOSPHORUS 6.6 mg/dl (2.5-4.9); POTASSIUM 4.6 mmol/L (3.5-5.1); SODIUM 132 mmol/L (135-144)
[2017-08-09] MEDS: HEPARIN 1000 UNITS/ML 10 ML INJ CATHETER (10:40)
[2017-08-09] MEDS ORDERED: SALINE 0.65% 45 ML NAS SPRAY NASAL (12:00)
[2017-08-09] MEDS: EPOETIN 4000 UNITS/1 ML INJ (ESRD) SC (17:12)
[2017-08-09] MEDS: ATORVASTATIN 40 MG TAB PO (20:28)
[2017-08-10] MEDS: ACCU-CHEK XX (02:00)
[2017-08-10] MEDS: PANTOPRAZOLE (EC) 40 MG TAB PO (06:06)
[2017-08-10] MEDS: BUMETANIDE 1 MG TAB PO ×2 (06:06→17:55)
[2017-08-10 06:13] LABS: ADD MAN DIFF? NO
[2017-08-10 06:22] LABS: BASOPHILS % 0.4 % (0.0-2.0); EOSINOPHILS # 0.3 10^3/ul (0.0-0.5); EOSINOPHILS % 4.3 % (0.0-7.0); HEMATOCRIT 23.1 % (42.0-52.0); HEMOGLOBIN 7.5 g/dl (14.0-18.0); LYMPHOCYTES # 0.9 10^3/ul (0.8-2.9); LYMPHOCYTES % 13.1 % (15.0-51.0); MEAN CORPUSCULAR HEMOGLOBIN 30.2 pg (29.0-33.0); MEAN CORPUSCULAR HGB CONC 32.5 g/dl (32.0-37.0); MEAN CORPUSCULAR VOLUME 93.1 fl (82.0-101.0); MEAN PLATELET VOLUME 11.1 fl (7.4-10.4); MONOCYTE # 1.1 10^3/ul (0.3-0.9); MONOCYTES % 15.4 % (0.0-11.0); NEUTROPHIL # 4.6 10^3/ul (1.6-7.5); NEUTROPHILS % 66.4 % (39.0-77.0); PLATELET COUNT 242 10^3/UL (140-415); RED BLOOD COUNT 2.48 10^6/ul (4.70-6.10)
[2017-08-10 06:52] LABS: ANION GAP 13 (8-16); BLOOD UREA NITROGEN 63 mg/dl (7-20); CALCIUM 7.7 mg/dl (8.4-10.2); CARBON DIOXIDE 26 mmol/L (21-31); CHLORIDE 101 mmol/L (97-110); CREATININE 5.29 mg/dl (0.61-1.24); GLUCOSE 164 mg/dl (70-220); MAGNESIUM 2.1 mg/dl (1.7-2.5); PHOSPHORUS 5.1 mg/dl (2.5-4.9); POTASSIUM 4.3 mmol/L (3.5-5.1); SODIUM 136 mmol/L (135-144)
[2017-08-10] MEDS: SEVELAMER 400 MG TAB PO ×3 (08:27→17:55)
[2017-08-10] MEDS: ASPIRIN 81 MG TAB PO (08:27)
[2017-08-10] MEDS: LORATADINE 10 MG TAB PO (08:27)
[2017-08-10] MEDS: MULTIVIT/CA CARB/B CMPLX/FA TAB PO (08:27)
[2017-08-10] MEDS: FLUTICASONE 0.05% 16 GM NAS SPRAY NASAL (08:30)
[2017-08-10] MEDS: AMLODIPINE 10 MG TAB PO (08:31)
[2017-08-10] MEDS: INSULIN ASPART [NOVOLOG] 3 ML PEN SC ×7 (08:34→21:00)
[2017-08-10] MEDS: HEPARIN 5,000 UNIT/0.5 ML VIAL SC (08:35)
[2017-08-11] MEDS: ATORVASTATIN 40 MG TAB PO ×2 (00:07→20:09)
[2017-08-11] MEDS: HEPARIN 5,000 UNIT/0.5 ML VIAL SC ×3 (00:09→20:11)
[2017-08-11] MEDS: ACCU-CHEK XX (02:00)
[2017-08-11] MEDS: BUMETANIDE 1 MG TAB PO ×2 (06:19→17:02)
[2017-08-11] MEDS: PANTOPRAZOLE (EC) 40 MG TAB PO (06:19)
[2017-08-11] MEDS: INSULIN ASPART [NOVOLOG] 3 ML PEN SC ×7 (08:00→20:09)
[2017-08-11] MEDS: SEVELAMER 400 MG TAB PO ×3 (08:36→17:02)
[2017-08-11] MEDS: ASPIRIN 81 MG TAB PO (08:36)
[2017-08-11] MEDS: LORATADINE 10 MG TAB PO (08:36)
[2017-08-11] MEDS: MULTIVIT/CA CARB/B CMPLX/FA TAB PO (08:36)
[2017-08-11] MEDS: AMLODIPINE 10 MG TAB PO (08:37)
[2017-08-11] MEDS: FLUTICASONE 0.05% 16 GM NAS SPRAY NASAL (08:39)
[2017-08-12] MEDS: ACCU-CHEK XX (02:00)
[2017-08-12] MEDS: BUMETANIDE 1 MG TAB PO ×2 (06:32→17:08)
[2017-08-12] MEDS: PANTOPRAZOLE (EC) 40 MG TAB PO (06:33)
[2017-08-12] MEDS: INSULIN ASPART [NOVOLOG] 3 ML PEN SC ×6 (08:00→17:08)
[2017-08-12] MEDS: SEVELAMER 400 MG TAB PO ×3 (08:30→17:08)
[2017-08-12] MEDS: MULTIVIT/CA CARB/B CMPLX/FA TAB PO (08:30)
[2017-08-12] MEDS: ASPIRIN 81 MG TAB PO (08:31)
[2017-08-12] MEDS: FLUTICASONE 0.05% 16 GM NAS SPRAY NASAL (08:31)
[2017-08-12] MEDS: LORATADINE 10 MG TAB PO (08:31)
[2017-08-12] MEDS: HEPARIN 5,000 UNIT/0.5 ML VIAL SC (08:32)
[2017-08-12] MEDS: AMLODIPINE 10 MG TAB PO (08:33)
[2017-08-12] MEDS ORDERED: ALBUMIN HUMAN 25% 50 ML IV (09:00)
[2017-08-12 10:17] LABS: ALBUMIN 2.3 g/dl (3.3-4.9); ANION GAP 11 (8-16); BLOOD UREA NITROGEN 49 mg/dl (7-20); CALCIUM 8.1 mg/dl (8.4-10.2); CARBON DIOXIDE 27 mmol/L (21-31); CHLORIDE 103 mmol/L (97-110); CREATININE 4.02 mg/dl (0.61-1.24); GLUCOSE 99 mg/dl (70-220); MAGNESIUM 1.8 mg/dl (1.7-2.5); PHOSPHORUS 4.3 mg/dl (2.5-4.9); POTASSIUM 4.4 mmol/L (3.5-5.1); SODIUM 137 mmol/L (135-144)
[2017-08-12] MEDS: HEPARIN 1000 UNITS/ML 10 ML INJ CATHETER (11:55)
[2017-08-12] MEDS: EPOETIN 4000 UNITS/1 ML INJ (ESRD) SC (17:08)
== END 2017-08-12 17:25 | disposition home or self-care (01) | DRG 291 ==
LOC: MS4 21:12 → E/R 11:04
PROVIDERS: Internal Medicine
PROC: 0JH63XZ Insertion of Tunneled Vascular Access Device into Chest Subcutaneous Tissue and Fascia, Percutaneous Approach (ICD-10-PCS; principal; 2017-08-07 16:39)
PROC: 02HV33Z Insertion of Infusion Device into Superior Vena Cava, Percutaneous Approach (ICD-10-PCS; 2017-08-07 16:39)
DX: I13.2 Hypertensive heart and chronic kidney disease with heart failure and with stage 5 chronic kidney disease, or end stage renal disease (principal); N17.0 Acute kidney failure with tubular necrosis; G93.49 Other encephalopathy; N18.6 End stage renal disease; E11.22 Type 2 diabetes mellitus with diabetic chronic kidney disease; I27.20 Pulmonary hypertension, unspecified; I50.23 Acute on chronic systolic (congestive) heart failure; E87.1 Hypo-osmolality and hyponatremia; R13.10 Dysphagia, unspecified; I16.0 Hypertensive urgency; D50.9 Iron deficiency anemia, unspecified; D63.1 Anemia in chronic kidney disease; E83.9 Disorder of mineral metabolism, unspecified; E11.649 Type 2 diabetes mellitus with hypoglycemia without coma; E87.5 Hyperkalemia; Z79.4 Long term (current) use of insulin
CPT/HCPCS: 36415; 36600; 70450; 71045; 76775; 76881-LT; 80048; 80053; 80061; 80069; 81001; 81003; 82043; 82140; 82595; 82728; 82803; 82962; 83036; 83540; 83605; 83690; 83735; 83880; 84100; 84155; 84300; 84439; 84443; 84484; 85025; 85610; 85730; 86021; 86038; 86160; 86226; 86430; 86704; 86709; 86803; 87340; 90686; 90935; 93005; 93306; 94640; 94664; 96372; 96374; 96375; 97161; 99291-25

== ENCOUNTER 2017-11-12 10:27 | Day surgery (SDC) | payer OTHER ==
[2017-11-12 11:57] LABS: ADD MAN DIFF? NO
[2017-11-12 12:06] LABS: WHITE BLOOD COUNT 6.8 10^3/ul (4.8-10.8)
[2017-11-12 12:06] LABS: BASOPHIL # 0.1 10^3/ul (0.0-0.1); BASOPHILS % 0.7 % (0.0-2.0); EOSINOPHILS # 0.3 10^3/ul (0.0-0.5); HEMATOCRIT 37.5 % (42.0-52.0); HEMOGLOBIN 12.6 g/dl (14.0-18.0); LYMPHOCYTES # 1.2 10^3/ul (0.8-2.9); LYMPHOCYTES % 17.9 % (15.0-51.0); MEAN CORPUSCULAR HEMOGLOBIN 29.9 pg (29.0-33.0); MEAN CORPUSCULAR HGB CONC 33.6 g/dl (32.0-37.0); MEAN CORPUSCULAR VOLUME 88.9 fl (82.0-101.0); MEAN PLATELET VOLUME 9.9 fl (7.4-10.4); MONOCYTE # 0.6 10^3/ul (0.3-0.9); MONOCYTES % 8.2 % (0.0-11.0); NEUTROPHIL # 4.7 10^3/ul (1.6-7.5); NEUTROPHILS % 68.5 % (39.0-77.0); PLATELET COUNT 178 10^3/UL (140-415); RED BLOOD COUNT 4.22 10^6/ul (4.70-6.10); RED CELL DISTRIBUTION WIDTH 13.9 % (11.5-14.5)
[2017-11-12] MEDS ORDERED: FENTAnyl 50 MCG/ML VIAL (12:06)
[2017-11-12] MEDS ORDERED: ROPIVACAINE 0.2% 20 ML VIAL (12:06)
[2017-11-12] MEDS ORDERED: MIDAZOLAM 1 MG/ML 2 ML INJ (12:06)
[2017-11-12 12:21] LABS: ALANINE AMINOTRANSFERASE 47 IU/L (13-69); ALBUMIN 3.2 g/dl (3.3-4.9); ALBUMIN/GLOBULIN RATIO 0.88; ALKALINE PHOSPHATASE 190 IU/L (42-121); ANION GAP 13 (8-16); ASPARTATE AMINO TRANSFERASE 55 IU/L (15-46); BILIRUBIN,INDIRECT 0.1 mg/dl (0-1.1); BILIRUBIN,TOTAL 0.1 mg/dl (0.2-1.3); CARBON DIOXIDE 30 mmol/L (21-31); CHLORIDE 106 mmol/L (97-110); GLUCOSE 126 mg/dl (70-220); TOTAL PROTEIN 6.8 g/dl (6.1-8.1)
[2017-11-12 12:23] LABS: INR 1.05; PROTIME 13.8 Sec (11.9-14.9); PT RATIO 1.1
[2017-11-12 12:24] LABS: PARTIAL THROMBOPLASTIN TIME 32.6 Sec (25.0-35.0)
[2017-11-12 12:29] LABS: SODIUM 144 mmol/L (135-144)
[2017-11-12 12:30] LABS: BLOOD UREA NITROGEN 44 mg/dl (7-20); POTASSIUM 5.2 mmol/L (3.5-5.1)
[2017-11-12 12:31] LABS: CALCIUM 8.2 mg/dl (8.4-10.2); CREATININE 5.04 mg/dl (0.61-1.24)
[2017-11-12] MEDS ORDERED: CEFAZOLIN 1 GM INJ (12:46)
[2017-11-12] MEDS ORDERED: PROPOFOL 20 ML (12:46)
[2017-11-12] MEDS: HEPARIN 1000 UNITS/ML 10 ML INJ (13:08)
[2017-11-12] MEDS: GELATIN SIZE 100 SPONGE (13:33)
[2017-11-12] MEDS: THROMBIN 5000 UNIT VIAL (13:33)
[2017-11-12] MEDS ORDERED: GLUCOSE GEL 15 GRAM TUBE PO ×2 (14:30)
[2017-11-12] MEDS ORDERED: DEXTROSE 50% 50 ML SYRINGE IV ×2 (14:30)
[2017-11-12] MEDS ORDERED: GLUCOSE GEL 15 GRAM TUBE BUCCAL (14:30)
[2017-11-12] MEDS ORDERED: GLUCAGON 1 MG INJ IM (14:30)
[2017-11-12] MEDS: ASPIRIN (EC) 81 MG TAB PO (14:32)
[2017-11-12] MEDS: AMLODIPINE 10 MG TAB PO (14:33)
[2017-11-12] MEDS ORDERED: SEVELAMER 800 MG TAB PO (18:00)
[2017-11-12] MEDS ORDERED: INSULIN ASPART [NOVOLOG] 3 ML PEN SC (18:00)
[2017-11-12] MEDS ORDERED: BUMETANIDE 1 MG TAB PO (18:00)
[2017-11-12] MEDS ORDERED: CALCIUM ACETATE 667 MG CAP PO (18:00)
[2017-11-12] MEDS ORDERED: INSULIN GLARGINE [LANtus] 3 ML PEN SC (21:00)
[2017-11-12] MEDS ORDERED: ATORVASTATIN 40 MG TAB PO (21:00)
== END 2017-11-12 15:42 | disposition home or self-care (01) ==
LOC: SDS 10:27
DX: I12.0 Hypertensive chronic kidney disease with stage 5 chronic kidney disease or end stage renal disease (principal); N18.6 End stage renal disease; E11.9 Type 2 diabetes mellitus without complications
CPT/HCPCS: 36821; 71045; 80053; 82962; 85025; 85610; 85730; 93005

== ENCOUNTER 2018-12-17 15:53 | Emergency (ER) | payer OTHER | END 2018-12-17 18:49 | disposition home or self-care (01) | LOC: FTE 15:53 | DX: J32.0 Chronic maxillary sinusitis (principal); J33.9 Nasal polyp, unspecified; I10 Essential (primary) hypertension; E11.9 Type 2 diabetes mellitus without complications; Z79.4 Long term (current) use of insulin; Z79.82 Long term (current) use of aspirin | CPT/HCPCS: 70486; 99284-25 ==